=== PATIENT | male | born 1985 | race Caucasian/White ===

== ENCOUNTER 2016-09-17 10:36 | Emergency (ER) | payer OTHER ==
[2016-09-17 10:48] VITALS: BP 130/81
--- NOTE | 2016-09-17 10:58 | UC ---
Throat Pain/Nasal Sherwin HPI - HPI Summary HPI Summary: About 9 days ago had stomach upset for 1-2 days, then starting 5-6 days ago has had lots of generalized face/sinus pressure with sneezing and mild productive cough. Also feeling discomfort in upper teeth. Denies pain, purulent drainage, fever, or facial swelling. - History of Current Complaint Chief Complaint: UCRespiratory Stated Complaint: SINUS CONGESTION Time Seen by Provider: 09/17/16 10:42 Hx Obtained From: Patient Onset/Duration: Gradual Onset, Lasting Days Severity: Mild Cough: None Associated Signs & Symptoms: Positive: Sinus Discomfort - Allergies/Home Medications Allergies/Adverse Reactions: Allergies Allergy/AdvReac Type Severity Reaction Status Date / Time No Known Allergies Allergy Verified 12/12/13 15:49 PMH/Surg Hx/FS Hx/Imm Hx Previously Healthy: Yes Endocrine History Of: Denies: Diabetes, Thyroid Disease Cardiovascular History Of: Denies: Cardiac Disorders, Hypertension Respiratory History Of: Denies: COPD, Asthma GI/ History Of: Denies: Ulcer - Surgical History Surgical History: Yes Surgery Procedure, Year, and Place: right knee - Family History Known Family History: Positive: Other - dad with prostate CA Negative: Cardiac Disease, Hypertension, Diabetes - Social History Alcohol Use: Occasionally Substance Use Type: Marijuana Smoking Status (MU): Never Smoked Tobacco Have You Smoked in the Last Year: No - Immunization History Most Recent Tetanus Shot: less then 5 yrs Review of Systems Constitutional: Negative Skin: Negative Eyes: Negative ENT: Nasal Discharge, Other - sneezing, sinus pressure Respiratory: Cough Cardiovascular: Negative Gastrointestinal: Negative Genitourinary: Negative Motor: Negative Neurovascular: Negative Musculoskeletal: Negative Neurological: Negative Psychological: Negative All Other Systems Reviewed And Are Negative: Yes Physical Exam Triage Information Reviewed: Yes Appearance: Well-Appearing, No Pain Distress, Well-Nourished Vital Signs Reviewed: Yes Eye Exam: Normal Eyes: Positive: Conjunctiva Clear ENT: Positive: Pharynx normal, Nasal congestion, TMs normal, Tonsillar swelling , Other: - generalized sinus pressure, no tenderness. Negative: Nasal drainage Dental Exam: Normal Neck exam: Normal Neck: Positive: Supple, Nontender, No Lymphadenopathy Respiratory Exam: Normal Respiratory: Positive: Chest non-tender, Lungs clear, Normal breath sounds, No respiratory distress, No accessory muscle use Cardiovascular Exam: Normal Cardiovascular: Positive: RRR, No Murmur Musculoskeletal Exam: Normal Neurological Exam: Normal Psychological Exam: Normal Skin Exam: Normal Throat Pain/Nasal Course/Dx - Differential Dx/Diagnosis Provider Diagnoses: rhinosinusitis, likely viral Discharge - Discharge Plan Condition: Stable Disposition: HOME Patient Education Materials: Rhinosinusitis (ED) Additional Instructions: As we discussed, your symptoms are quite viral in nature at this time and should resolve, given enough time. If you develop fever, facial swelling, pain, or localized symptoms, please call or return (YOU CAN GET A MESSAGE TO ME SPECIFICALLY ON SUNDAY OR SUNDAY). SINUSITIS: You have sinusitis, an inflammation of the sinus cavities of the face. The sinuses are air-filled chambers which open into the inside of the nose. It can be caused by viral infection (a head cold), bacteria, or irritants (such as cleaning products). When it is bacterial, bacteria and pus fill a sinus, causing pain, drainage, and fever. Bacterial sinusitis is treated with antibiotics, though they are not always helpful. Often, expectorants (to thin the sinus mucous) or decongestants (to reduce swelling) are prescribed as well. Avoid chemical fumes, pollens, dusts, and smoke (especially cigarette smoke ). Keep the air humidified in your bedroom and work area and take plenty of liquids by mouth. This condition can be serious if the infection spreads. If your symptoms worsen, or if you develop severe headache, high fever, stiff neck, or a rash, you must call the doctor or return for re-evaluation. SINUS RINSES HAVE BEEN SHOWN TO HELP IMPROVE SYMPTOMS AND SHORTEN THE DURATION OF MILD TO MODERATE SINUSITIS. [employer] MAKES A SQUEEZE BOTTLE THAT YOU CAN USE OVER THE SINK OR IN THE SHOWER. USE ONLY SALINE, AND REPEAT UP TO EVERY 2 HOURS DESIRED. ONLY USE DISTILLED WATER TO MIX UP SALINE, DO NOT USE TAP WATER. NASAL SPRAYS AND DROPS: Decongestant nasal sprays and drops often give dramatic relief from congestion. They are often recommended for patients with sinus infection to assist with sinus drainage. Persons with high blood pressure should consult the doctor before using these nasal sprays. Afrin and Porfirio-Synephrine are common [id number] preparations. They should not be used for more than three days, as "rebound" congestion can occur - - the congestion flares as the drug wears off. A way of dealing with this rebound congestion problem is to medicate only one nostril each time, allowing the other nostril to recover from the medicine' s effects. When you no longer need the drug during the day, spray only one nostril each night. This helps you sleep well without severe rebound congestion. Call your doctor if you develop severe headache, palpitations, or chest pain.
== END 2016-09-17 11:20 | disposition home or self-care (01) ==
LOC: UCEAST 10:36
DX: J01.90 Acute sinusitis, unspecified (principal)
CPT/HCPCS: 99211; G0463

== ENCOUNTER 2016-11-21 09:45 | Emergency (ER) | payer OTHER ==
[2016-11-21] MEDS ORDERED: Aspirin Low Dose CHEW TAB* 81 MG PO ONE (10:17)
[2016-11-21 10:36] LABS: Hematocrit 43 % (42-52); Hemoglobin 14.8 g/dl (14.0-18.0); Mean Corpuscular HGB Conc 34 g/dl (31-36); Mean Corpuscular Hemoglobin 32 pg (27-31); Mean Corpuscular Volume 93 fL (80-94); Mean Platelet Volume 9 um3 (7.4-10.4); Red Blood Count 4.66 10^6/ul (4.0-5.4); Red Cell Distribution Width 12 % (10.5-15); White Blood Count 4.7 10^3/ul (3.5-10.8)
[2016-11-21 10:52] LABS: Troponin I 0.01 ng/mL (<0.04)
--- NOTE | 2016-11-21 10:56 | RAD ---
INDICATION: Chest pain. COMPARISON: There are no prior studies available for comparison. TECHNIQUE: A portable view of the chest was obtained. FINDINGS: Cardiac and mediastinal contours appear to be within normal limits. The lungs are clear. No pneumothorax or pleural effusion is seen. IMPRESSION: NO EVIDENCE FOR ACUTE DISEASE.
[2016-11-21 11:07] LABS: Albumin 4.7 g/dL (3.2-5.2); BUN/Creatinine Ratio 15.3 (8-20); Calcium 9.5 mg/dL (8.6-10.3); EGFR Non-African American 68.4 (>60); Globulin 2.6 g/dL (2-4); Potassium 3.8 mmol/L (3.5-5.0); Total Protein 7.3 g/dL (6.4-8.9)
[2016-11-21 13:22] VITALS: BP 148/79
--- NOTE | 2016-11-21 18:41 | ED ---
Vadim Rojas Matthew, scribed for Lonnie Su MD on 11/21/16 at 1245 . HPI Chest Pain - HPI Summary HPI Summary: A 31 y/o male presents to the ED with chest pain since a month ago. The patient was jogging and got a lot of chest tightness that caused him to immediately rest. He walked slowly home and had no coughing or wheezing at that time. He reports intermittent numbness/tingling in the arms. On 11/19, the patient ate then walked his dogs. During the walk, he felt tightness in his abdomen without pain during the walk, then felt a similar shooting pain mid sternal which radiated straight down into his abdomen and lasted for 1.5 hours. No sour taste or burning in the throat. He has these episodes intermittently. During the episode he has no nausea. He reports that he chronically clinches his jaw, which results in pain and he's frequently clammy. The patient smokes marijuana occasional and frequently drinks alcohol. He binged drank on 11/17/16. He states that he drank whiskey and Guinness and estimates that he had 15 drinks. He states that he had little effects from the alcohol and admits the drinking frequently. SHx of knee surgery and throat surgery. The patient had no symptoms today. SHx knee surgery, throat sugery. The patient is a massage therapist and artist. - History of Current Complaint Chief Complaint: EDChestPainROMI Time Seen by Provider: 11/21/16 10:07 Hx Obtained From: Patient Onset/Duration: Started Weeks Ago, Atraumatic Timing: Intermittent, Lasting Hours - 1.5 Initial Severity: Moderate Current Severity: None Pain Intensity: 0 Pain Scale Used: 0-10 Numeric Chest Pain Location: Mid Sternal Chest Pain Radiates: No Associated Signs and Symptoms: Positive: Numbness - intermittent - none currently, Tingling - intermittent - none currently - Allergy/Home Medications Allergies/Adverse Reactions: Allergies Allergy/AdvReac Type Severity Reaction Status Date / Time No Known Allergies Allergy Verified 12/12/13 15:49 PMH/Surg Hx/FS Hx/Imm Hx Endocrine/Hematology History: Denies: Hx Diabetes, Hx Thyroid Disease Cardiovascular History: Denies: Hx Hypertension Respiratory History: Denies: Hx Asthma, Hx Chronic Obstructive Pulmonary Disease (COPD) GI History: Denies: Hx Ulcer - Surgical History Surgery Procedure, Year, and Place: right knee Infectious Disease History: No Infectious Disease History: Denies: Hx Hepatitis, Hx Human Immunodeficiency Virus (HIV), Traveled Outside the [place] in Last 30 Days - Family History Known Family History: Positive: Other - dad with prostate CA Negative: Cardiac Disease, Hypertension, Diabetes - Social History Alcohol Use: Occasionally Substance Use Type: Reports: Marijuana Smoking Status (MU): Never Smoked Tobacco Have You Smoked in the Last Year: No Review of Systems Constitutional: Negative Eyes: Negative ENT: Negative Cardiovascular: Negative Respiratory: Negative Gastrointestinal: Negative Genitourinary: Negative Musculoskeletal: Negative Skin: Negative Neurological: Negative Psychological: Normal All Other Systems Reviewed And Are Negative: Yes Physical Exam Triage Information Reviewed: Yes Vital Signs On Initial Exam: Initial Vitals Temp Pulse Resp BP Pulse Ox 98.1 F 56 16 155/93 100 11/21/16 09:56 11/21/16 09:56 11/21/16 09:56 11/21/16 09:56 11/21/16 09:56 Vital Signs Reviewed: Yes Appearance: Positive: Well-Appearing, No Pain Distress Skin: Positive: Warm, Dry Head/Face: Positive: Other - Normocephalic; Atraumatic Eyes: Positive: Conjunctiva Clear Neck: Positive: No Lymphadenopathy, Other: - Full ROM; NO JVD Respiratory/Lung Sounds: Positive: Breath Sounds Present, Other - Normal Effort. Negative: Rales, Rhonchi, Stridor, Tracheal Deviation, Wheezes Cardiovascular: Positive: Pulses are Symmetrical in both Upper and Lower Extremities, Bradycardia Abdomen Description: Positive: Nontender, Soft, Other: - No Rebound. Negative: Distended, Guarding Bowel Sounds: Positive: Present Musculoskeletal: Negative: Edema Left, Edema Right Neurological: Positive: Alert, Oriented to Person Place, Time Psychiatric: Positive: Affect/Mood Appropriate - Mey Coma Scale Coma Scale Total: 15 Diagnostics - Vital Signs Vital Signs Temp Pulse Resp BP Pulse Ox 11/21/16 11:39 99 11/21/16 11:30 64 13 131/83 100 11/21/16 11:00 68 21 134/67 100 11/21/16 10:30 55 22 122/76 99 11/21/16 10:16 56 13 100 11/21/16 10:13 132/94 11/21/16 09:56 98.1 F 56 16 155/93 100 - Laboratory Lab Results: Lab Results 11/21/16 11/21/16 11/21/16 Range/Units 10:10 10:10 10:10 WBC 4.7 (3.5-10.8) 10^3/ul RBC 4.66 (4.0-5.4) 10^6/ul Hgb 14.8 (14.0-18.0) g/dl Hct 43 (42-52) % MCV 93 (80-94) fL MCH 32 H (27-31) pg MCHC 34 (31-36) g/dl RDW 12 (10.5-15) % Plt Count 152 (150-450) 10^3/ul MPV 9 (7.4-10.4) um3 Neut % (Auto) 67.1 (38-83) % Lymph % (Auto) 23.1 L (25-47) % [place] % (Auto) 9.1 H (1-9) % Eos % (Auto) 0.4 (0-6) % Baso % (Auto) 0.3 (0-2) % Absolute Neuts (auto) 3.1 (1.5-7.7) 10^3/ul Absolute Lymphs (auto) 1.1 (1.0-4.8) 10^3/ul Absolute Monos (auto) 0.4 (0-0.8) 10^3/ul Absolute Eos (auto) 0 (0-0.6) 10^3/ul Absolute Basos (auto) 0 (0-0.2) 10^3/ul Absolute Nucleated RBC 0 10^3/ul Nucleated RBC % 0 Sodium 137 (133-145) mmol/L Potassium 3.8 (3.5-5.0) mmol/L Chloride 102 (101-111) mmol/L Carbon Dioxide 28 (22-32) mmol/L Anion Gap 7 (2-11) mmol/L BUN 19 (6-24) mg/dL Creatinine 1.24 H (0.67-1.17) mg/dL Est GFR ( Amer) 88.0 (>60) Est GFR (Non-Af Amer) 68.4 (>60) BUN/Creatinine Ratio 15.3 (8-20) Glucose 77 (70-100) mg/dL Lactic Acid 0.8 (0.5-2.0) mmol/L Calcium 9.5 (8.6-10.3) mg/dL Total Bilirubin 1.00 (0.2-1.0) mg/dL AST 42 H (13-39) U/L ALT 50 (7-52) U/L Alkaline Phosphatase 49 (34-104) U/L Troponin I 0.01 (<0.04) ng/mL Total Protein 7.3 (6.4-8.9) g/dL Albumin 4.7 (3.2-5.2) g/dL Globulin 2.6 (2-4) g/dL Albumin/Globulin Ratio 1.8 (1-3) Result Diagrams: 11/21/16 10:10 11/21/16 10:10 Lab Statement: Any lab studies that have been ordered have been reviewed, and results considered in the medical decision making process. - Radiology CXR Xray Interpretation: No Acute Changes - IMPRESSION: NO EVIDENCE FOR ACUTE DISEASE. Radiology Interpretation Completed By: Radiologist - EKG 10:08 Cardiac Rate: NL - 61 bpm EKG Rhythm: Sinus Rhythm EKG Interpretation: No STEMI Chest Pain Course/Dx - Course Assessment/Plan: No cardiac risk factors. MAURA score is 0 - Diagnoses Provider Diagnoses: Alcohol abuse, Renal insufficiency, Chest pain Discharge - Discharge Plan Condition: Stable Disposition: HOME Prescriptions: Esomeprazole Magnesium [Nexium] 40 mg PO DAILY #30 tab Patient Education Materials: Esomeprazole (By mouth), Chest Pain (ED) Referrals: [facility] [place] [facility]IAN REFERRAL [Outside] - 3 Days Additional Instructions: Please follow-up with your primary care physician in 3 days. The documentation as recorded by the Vadim maxwell Matthew accurately reflects the service I personally performed and the decisions made by , Lonnie Su MD.
--- NOTE | 2016-11-30 11:12 | ED ---
Vadim Rojas Matthew, scribed for Lonnie Su MD on 11/21/16 at 1931 . Progress - Progress Note Progress Note: A 31 y/o male presents to the ED with chest pain since a month ago. On 11/19, the patient ate then walked his dogs. During the walk, he felt tightness in his abdomen without pain then felt a similar shooting pain mid sternal which radiated straight down into his abdomen and lasted for 1.5 hours. No sour taste or burning in the throat. He has these episodes intermittently. The patient admits to popeye drinking frequency and binged drank on 11/17/16. Labs were reviewed and show elevated Creatinine levels. CXR shows no acute disease. EKG shows sinus rhythm at 61 bpm. The patient will be discharged home on Nexium to follow-up with his PCP. Course/Dx - Diagnoses Provider Diagnoses: Alcohol abuse, Renal insufficiency, Chest pain The documentation as recorded by the Vadim maxwell Matthew accurately reflects the service I personally performed and the decisions made by , Lonnie Su MD.
== END 2016-11-21 13:25 | disposition home or self-care (01) ==
LOC: ED 09:45
DX: F10.10 Alcohol abuse, uncomplicated (principal); R07.9 Chest pain, unspecified; N28.9 Disorder of kidney and ureter, unspecified
CPT/HCPCS: 36415; 71010; 80053; 83605; 84484; 85025; 93005; 99283